=== PATIENT | female | born 1955 | race Caucasian/White ===

== ENCOUNTER → 2017-03-31 | Outpatient (CLI) | payer BC | LOC: BHSO 11:08 | DX: F33.1 Major depressive disorder, recurrent, moderate (principal) | CPT/HCPCS: 90791-AI ==

== ENCOUNTER → 2017-06-25 | Outpatient (CLI) | payer BC | LOC: BHSO 14:49 | DX: F41.1 Generalized anxiety disorder (principal) ==

== ENCOUNTER → 2017-08-29 | Outpatient (CLI) | payer BC | LOC: BHSO 10:02 | DX: F33.1 Major depressive disorder, recurrent, moderate (principal) ==

== ENCOUNTER → 2018-01-16 | Outpatient (CLI) | payer BC | LOC: BHSO 11:06 | DX: F31.81 Bipolar II disorder (principal) | CPT/HCPCS: G0463 ==